=== PATIENT | male | born 1975 | race Caucasian/White ===

== ENCOUNTER 2017-10-07 21:11 | Emergency (ER) | payer BC ==
[2017-10-07] MEDS: IBUPROFEN 600 MG TAB PO (21:41)
== END 2017-10-07 23:18 | disposition home or self-care (01) ==
LOC: FTE 21:11
DX: S69.92XA Unspecified injury of left wrist, hand and finger(s), initial encounter (principal); W21.07XA Struck by softball, initial encounter; Y92.9 Unspecified place or not applicable
CPT/HCPCS: 73130; 73130-RT; 99283-25